=== PATIENT | male | born 1990 | race Caucasian/White ===

== ENCOUNTER 2019-03-01 19:17 | Emergency (ER) | payer MEDICAID, OTHER ==
[~2019-03-01] VITALS: Ht 182.9 cm; Wt 81.8 kg
[2019-03-02] MEDS ORDERED: LORazepam 1 MG tablet PO ONE (00:05)
--- NOTE | 2019-03-02 00:35 | NUR ---
Pt denies S/H/I at this time. He reports having "heard and seen things, but not right now." Pt also reports he was prescribed Xanax and Ativan, the former which he used more than prescribed. Pt also affirms heroin use, but states, "I smoke it, not inject. I'm scared of needles... really, really freaked out by them." Sister reports pt has been delusional AEB him indicating he is seeing people and items she does not see when she has been with him. Pt appears to have a close relationship with his sister, but became mildly upset with her when she described his bx. Pt was easily calmed.
--- NOTE | 2019-03-02 01:22 | NUR ---
Pt has been very reluctant to allow blood draws for lab. With much coaxing by this RN, pt agreed. Initial attempt did not yield an adequate amount of blood for ordered labs, coagulating after 3mls drawn. Pt then agreed to allow lab odette Kirk to try. Larger amount drawn, but again not enough for ordered labs. EDMD notified with him indicating lab result priorities.
--- NOTE | 2019-03-02 01:31 | NUR ---
[facility] telepsych initiated. Estimated time: 1 hr
[2019-03-02 01:33] LABS: BASOPHILS # (AUTO) 0.1 X10'3 (0-0.2); BASOPHILS % (AUTO) 0.9 % (0-1); EOSINOPHILS # (AUTO) 0.3 X10'3 (0-0.9); HEMATOCRIT 45.9 % (42.0-52.0); HEMOGLOBIN 15.5 g/dl (14.0-17.9); LYMPHOCYTES # (AUTO) 3.3 X10'3 (1.1-4.8); LYMPHOCYTES % (AUTO) 25.4 % (21-51); MEAN CORPUSCULAR HEMOGLOBIN 31.3 PG (27.0-31.0); MEAN CORPUSCULAR HGB CONC 33.7 g/dL (33.0-36.5); MEAN CORPUSCULAR VOLUME 92.9 FL (78-98); MEAN PLATELET VOLUME 7.2 FL (7.4-10.4); MONOCYTES # (AUTO) 0.8 X10'3 (0-0.9); MONOCYTES % (AUTO) 6.4 % (2-12); NEUTROPHILS # (AUTO) 8.4 X10'3 (1.8-7.7); NEUTROPHILS % (AUTO) 65.3 % (42-75); PLATELET COUNT 333 X10'3 (140-440); RED BLOOD COUNT 4.94 X10'6 (4.70-6.10); RED CELL DISTRIBUTION WIDTH 13.6 % (11.5-14.5); WHITE BLOOD COUNT 12.9 X10'3 (4.5-11.0)
[2019-03-02] MEDS ORDERED: nicotine 21mg patch - 24 hr TD ONE (01:35)
[2019-03-02 01:44] LABS: ALANINE AMINOTRANSFERASE 21 U/L (12-78); ALBUMIN/GLOBULIN RATIO 1.2 (1.1-1.5); ALKALINE PHOSPHATASE 81 IU/L (46-116); ANION GAP 9 (8-16); ASPARTATE AMINO TRANSFERASE 13 U/L (10-37); BILIRUBIN,TOTAL 0.4 MG/DL (0.1-1.0); BLOOD UREA NITROGEN 22 MG/DL (7-18); CALCIUM 9.1 MG/DL (8.5-10.1); CHLORIDE 102 MMOL/L (99-107); GLUCOSE 116 MG/DL (70-104); POTASSIUM 3.7 MMOL/L (3.5-5.1); SODIUM 137 MMOL/L (135-145); TOTAL CARBON DIOXIDE 25.7 MMOL/L (24-32); TOTAL PROTEIN 7.3 G/DL (6.4-8.2); eGFR 90 ML/MIN
[2019-03-02 01:52] LABS: ETHANOL < 0.010 GM/DL (0.0-0.010)
--- NOTE | 2019-03-02 02:00 | NUR ---
Sister, Opal contact ([phone]) will call in for updates which pt gave verbal okay to provided. Additionally he requested she be included as KIN; Registration notified.
--- NOTE | 2019-03-02 05:26 | NUR ---
Pt status provided Dr Mason, [facility] Psychiatrist.
--- NOTE | 2019-03-02 05:39 | NUR ---
Pt's mother, Breanna called regarding pt status. Upon seeking pt authorization to provided update, pt requested he speak with her first. Mother transferred to pt's room where he was heard giving her an update.
--- NOTE | 2019-03-02 05:40 | NUR ---
[facility] Psychiatrist f/u indicating pt does not meet criteria for a hold. He will be recommending OP care.
--- NOTE | 2019-03-02 05:50 | NUR ---
Per CARLOS Arriaga request, [facility] contacted regarding possible voluntary placement of pt. VESAT Garcia @ [facility] indicated they are full and increasingly pt's admissions are via [id number] originated psychosocial assessments by [facility]. CARLOS Arriaga informed.
--- NOTE | 2019-03-02 06:56 | NUR ---
Spoke with Pt. sister Opal. She requested to be called if and when pt. is discharged or transferred. Cell phone is [phone].
--- NOTE | 2019-03-02 07:37 | NUR ---
Pt. states he wants to be prescribed ativan and methadone and leave the hospital. Pt is visibly anxious to leave. Spoke w/ DR. Ho and informed her that pt. wants to be discharged.
--- NOTE | 2019-03-02 07:55 | NUR ---
GAVE PT A SACK LUNCH, APPLIED NICOTINE PATCH PT ANXIOUS TO GO OUTSIDE AND SMOKE A CIGARETTE, PT DISCUSSED THAT HE WILL FOLLOW UP WITH [facility] OR [facility] FOR XANAX AND METHADONE, PT REPORTS HIREN DONALD IN [place] PRESCRIBED PT METHADONE, PT REPORTS LAST METHADONE DOSE WAS A COUPLE DAYS AGO, PITA WITH [facility] TO DISCUSS RESOURCES WITH PT SHORTLY.
[2019-03-02] MEDS ORDERED: LORA0.5T PO (08:35)
--- NOTE | 2019-03-02 08:45 | NUR ---
PT SISTER ROBERT P# [phone] CALLED, INFORMED HER PT IS MEDICALLY CLEARED AND STABLE FOR DISCHARGE, HE HAS BEEN GIVEN RESOURSES TO FOLLOW UP WITH DRUG AND ETOH [facility]BUSE, METHADONE [facility]RE[facility], AND [facility], SHE STATES SHE WILL NOT NURSE CLINICAL THE PATIENT AND STATES HE HAS BEEN DOING DRUGS FOR 10 YEARS BUT HIS MENTAL HEALTH HAS DECLINED IN THE LAST YEAR, SHE ASKED FOR HIS DRUG TOX RESULTS INFORMED HER I COULD NOT GIVE HER THAT INFORMATION AND IF SHE WANTED TO COME DOWN TO HOSPITAL AND HAVE PT SIGN A MED RELEASE FORM THAT WE CAN RELEASE PT PRIVATE HEALTH INFORMATION BUT CAN NOT GIVE THAT INFORMATION OVER THE PHONE, SHE STATES SHE IS NOT COMING DOWN TO HOSPITAL AND HUNG UP ON ME.
[2019-03-02 09:02] VITALS: BP 124/85
== END 2019-03-02 09:10 | disposition home or self-care (01) ==
LOC: ER 19:18
DX: F28 Other psychotic disorder not due to a substance or known physiological condition (principal); F22 Delusional disorders; F15.90 Other stimulant use, unspecified, uncomplicated; F11.90 Opioid use, unspecified, uncomplicated; Z59.0 Homelessness
CPT/HCPCS: 36415; 80053; 80320; 84443; 85025; 99284

== ENCOUNTER 2019-03-03 18:54 | Emergency (ER) | payer MEDICAID, OTHER ==
[~2019-03-03] VITALS: Ht 195.6 cm; Wt 65.8 kg
[~2019-03-03 18:54] MED LIST: LORA0.5T PO
[2019-03-03 19:11] VITALS: BP 141/86
--- NOTE | 2019-03-03 20:16 | NUR ---
PT WAS TAKING METHADONE 80MG DAILY AND XANAX 2 MG TID, STATES HIS PRESCRIPTIONS RAN OUT APPROX 2 WEEKS AGO, HAS BEEN MEDICATED IN AN ER SINCE THEN
[2019-03-03] MEDS ORDERED: LORazepam 1 MG tablet PO ONE (20:55)
== END 2019-03-03 20:55 | disposition home or self-care (01) ==
LOC: ER 18:55
DX: F41.9 Anxiety disorder, unspecified (principal); Z76.0 Encounter for issue of repeat prescription; G89.29 Other chronic pain; F15.90 Other stimulant use, unspecified, uncomplicated; F11.90 Opioid use, unspecified, uncomplicated; Z79.899 Other long term (current) drug therapy; Z59.0 Homelessness
CPT/HCPCS: 99282